=== PATIENT | female | born 1945 | race Caucasian/White ===

== ENCOUNTER 2021-04-26 07:13 | Inpatient (IN) ==
[~2021-04-26 07:13] MED LIST: Buffered Lidocaine 1% SYRIN 1 ml INTRADERM ONE; Lactated Ringers 1000 ml BAG 1,000 ML IV SCH
[2021-04-26] MEDS ORDERED: ceFAZolin 2 GM PREMIX 2 GM/50 ML BAG ONE (08:25)
[2021-04-26] MEDS ORDERED: fentaNYL 100 mcg/2 ml 50 MCG/ML VIAL ONE (08:55)
[2021-04-26] MEDS ORDERED: Midazolam 2 mg/2 ml VIAL 1 mg/ml 2 ml VIAL (2 mg) ONE (08:55)
[2021-04-26] MEDS ORDERED: ROPIVACAINE 5 MG/ML 30 ML BTL (0.5%) ONE (09:02)
[2021-04-26] MEDS ORDERED: Propofol 10 mg/ml 100 ML BTL 100 ML ONE (09:17)
[2021-04-26] MEDS ORDERED: Phenylephrine IV 10 MG/ML 1 ml VIAL ONE (09:25)
[2021-04-26] MEDS ORDERED: Lidocaine 2% PF 5 ML VIAL ONE (09:25)
[2021-04-26] MEDS ORDERED: Ropivacaine 5 MG/ML 20 ML VIAL 0.5% (100 MG) ONE (09:36)
[2021-04-26] MEDS ORDERED: Ondansetron 4 mg VIAL 2 MG/ML 2 ml VIAL ONE (10:48)
[2021-04-26] MEDS ORDERED: Dexamethasone IV 4 MG/ML VIAL 1 ml VIAL ONE (10:48)
[2021-04-26] MEDS ORDERED: Lactulose 30 ml UDC PO PRN (11:13)
[2021-04-26] MEDS ORDERED: Magnesium Hydroxide LIQ 30 ML UDC PO PRN (11:13)
[2021-04-26] MEDS ORDERED: diPHENhydraMINE IV 50 MG/ML 1 ml VIAL (BENADRYL) IV PRN (11:13)
[2021-04-26] MEDS ORDERED: Ondansetron 4 mg VIAL 2 MG/ML 2 ml VIAL IV PRN (11:13)
[2021-04-26] MEDS ORDERED: Morphine 2 MG/ML SYRINGE IV PRN (11:13)
[2021-04-26] MEDS ORDERED: diPHENhydraMINE 25 mg TAB PO PRN (11:13)
[2021-04-26] MEDS ORDERED: Ondansetron ODT 4 mg TAB 4 MG TAB PO PRN (11:13)
[2021-04-26] MEDS: Lactated Ringers 1000 ml BAG 1,000 ML IV SCH (14:47)
[2021-04-26] MEDS: ceFAZolin 1 GM ADVAN 1 GM in NS 0.9% 50 ML 50 ML IVPB SCH (19:47)
[2021-04-26] MEDS: Magnesium Hydroxide LIQ 30 ML UDC PO SCH (22:40)
[2021-04-27] MEDS: Lactated Ringers 1000 ml BAG 1,000 ML IV SCH (01:16)
[2021-04-27] MEDS: ceFAZolin 1 GM ADVAN 1 GM in NS 0.9% 50 ML 50 ML IVPB SCH ×2 (04:30→11:50)
[2021-04-27 06:30] LABS: Hematocrit 34 % (35-47); Hemoglobin 11.3 g/dL (12.0-16.0); Mean Platelet Volume 7.8 fL (7.4-10.4); Platelet Count 314 10^3/uL (150-450)
[2021-04-27 06:56] LABS: eGFR CKD-EPI 94.5 (>60)
[2021-04-27] MEDS: Magnesium Hydroxide LIQ 30 ML UDC PO SCH (07:36)
[2021-04-27] MEDS ORDERED: Vitamin THERAPEUTIC TAB PO SCH (09:00)
[2021-04-27 11:24] VITALS: BP 132/69
== END 2021-04-27 13:12 | disposition home or self-care (01) | DRG 470 ==
LOC: AA 07:13 → SSU 14:12
PROVIDERS: ADMIT Orthopaedic Surgery Adult Reconstructive Orthopaedic Surgery; ATTEND Orthopaedic Surgery Adult Reconstructive Orthopaedic Surgery